=== PATIENT | female | born 1975 | race African-American/Black ===

== ENCOUNTER → 2024-10-10 | Day surgery (SDC) | payer BC ==
[~2024-10-10] MED LIST: ACETAMINOPHEN 1000 MG/100 ML 100 ML IV ONE; EPHEDRINE SULFATE INJ 50 MG/ML VIAL ONE; FAMOTIDINE 20 MG/2 ML VIAL IV ONE; FENTANYL CITRATE/PF 100MCG/2 ML INJ ONE; LIDOCAINE HCL 2% LOCAL INJ 5 ML SDV VIAL INJ ONE; LISINOPRIL5 MG PO; MULTI-VITAMIN1 EACH PO; ONDANSETRON HCL INJ 2MG/ML 2ML 2 MG/ML VIAL ONE; PROPOFOL IV EMULSION 10 MG/ML 20 ML VIAL ONE; SEVOFLURANE INHAL SOLN 250 ML PEN BTL ONE; SODIUM CHLORIDE 0.9% 1000ML 1,000 ML ONE; VENTOLIN HFA18 GM INH
[2024-10-10 14:25] VITALS: TEMP 97.4
[2024-10-10 15:00] VITALS: BP 128/81; PULSE 60; RESP 18; O2SAT 100
== END | disposition home or self-care (01) ==
LOC: OR 10:06
PROVIDERS: ATTEND Podiatrist Foot & Ankle Surgery
DX: M20.21 Hallux rigidus, right foot (principal); M25.774 Osteophyte, right foot; I10 Essential (primary) hypertension; E66.9 Obesity, unspecified; D64.9 Anemia, unspecified; Z01.810 Encounter for preprocedural cardiovascular examination; Z79.899 Other long term (current) drug therapy
CPT/HCPCS: 81025; 93005; C1713; C1734; C1830; J0690; J1308; J2003; J2405; J7030